=== PATIENT | male | born 1950 | race Caucasian/White ===

== ENCOUNTER 2019-03-01 11:44 | Inpatient (IN) ==
--- NOTE | 2019-03-01 13:31 | Internal Med History&Physical ---
Date of Encounter: 03/01/19 Time of Encounter: 13:26 Assessment and Plan (1) CAD (coronary artery disease) Current visit: Yes Status: Acute Patient appears relaxed and denies any chest discomforts or palpitations. Patient was evaluated at [facility] and was ruled out for cardiac ischemia per cardiac enzymes and with a stress test. Physical therapy evaluation pending. We will mobilize patient and continue to monitor closely. Qualifiers: Coronary Disease-Associated Artery/Lesion type: [place] artery [place] vs. transplanted heart: [place] heart Associated angina: without angina Qualified Code(s): I25.10 - Atherosclerotic heart disease of [place] coronary artery without angina pectoris (2) CVA (cerebral vascular accident) Current visit: Yes Status: Acute No acute issues. On patient's neurological exam no focal deficits residuals noted from patient's remote CVA. Physical therapy evaluation pending. We will continue with current plan of care and medications. Qualifiers: CVA mechanism: occlusion Precerebral and cerebral artery: unspecified cerebral artery Qualified Code(s): I63.50 - Cerebral infarction due to unspecified occlusion or stenosis of unspecified cerebral artery (3) Back pain Current visit: Yes Status: Acute Patient with complaints of moderate low back pain. Patient with long history of lumbar disc disease and has had 2 lumbar surgeries. Patient was evaluated by orthospine through imagery was determined to be nonsurgical and will be treated conservatively with physical therapy. Currently patient's pain is mild and tolerable. Will start patient on Tylenol when necessary and evaluate his response. We will mobilize patient Qualifiers: Back pain location: low back pain Chronicity: acute Back pain laterality: midline Sciatica presence: without sciatica Qualified Code(s): M54.5 - Low back pain (4) Generalized anxiety disorder Current visit: Yes Status: Acute Patient with recent history of anxiety due to separation from his , who he is taking care of. Patient's recently diagnosed with cancer and requires a lot of care. Patient was on Ativan at previous facility and responded well. We will restart patient's when necessary Ativan. Currently patient appears relaxant is interacting well with staff. Internal Medicine - H&P: HPI Chief complaint: chest pain Admitted From: Hospital to Hospital Transfer Plans for Post Hospital Care: Home History of present illness: Mr. Alvarez is a 69 year old male, who was transferred here from an [facility] where he was evaluated for chest pain and dyspnea. Patient was ruled out per cardiac enzymes and cardiac stress test. Patient has stated that he has had an elevation of stress at home as he takes care of his who was recently diagnosed with cancer. While at [facility] patient also complained of moderate low back pain and was evaluated with a MRI and per orthospine was nonsurgical. Patient with a history of lumbar disc disease. Patient was transferred his facility for further rehabilitation due to his generalized weakness and low back pain. Patient currently complains of slight low back pain which he denies any radicular symptoms. Patient denies any shortness of breath or chest discomforts. Past Med Surg Social Fam HX - Past Medical History Medical history: arthritis, COPD, coronary artery disease, CVA, GERD, hypertension, kidney stones, TIA Additional medical history: DIZZINESS,CHRONIC LUMBAR PAIN, ULCERS, DJD Psychiatric history: no psych history - Past Surgical History Surgical History: appendectomy, carotid endarterectomy Additional surgical history: lumbar - Social History Smoking Status: Former smoker Smokeless Tobacco Status: No Alcohol use: none Drug use: none - Family History Father Adopted: No Family Member Ethnicity: Non- Living Status: Hx Family Cardiac Disorders: No Hx Family Respiratory Disorders: No Hx Family Cancer: No Hx Family GI Disorders: No Hx Family Endocrine Disorder: No Hx Family Neuromuscular Disorders: No Hx Family Neurologic Disorders: No Hx Family HEENT Disorders: No Hx Family Autoimmune Disorders: No Internal Medicine - H&P: Meds Tamsulosin [Flomax] 0.4 mg PO DAILY 09/08/17 [History] Docusate Sodium [Stool Softener] 300 mg PO DAILY 02/24/19 [History] Esomeprazole Magnesium [Nexium] 40 mg PO DAILY 02/24/19 [History] Multivitamin [One Daily Essential] 1 tab PO DAILY 02/24/19 [History] Simvastatin [Zocor] 40 mg PO QPM 02/24/19 [History] Aspirin Enteric Coated [Aspirin EC] 81 mg PO DAILY #30 tablet. 02/28/19 [Rx] Clopidogrel [Plavix] 75 mg PO DAILY #30 tablet 02/28/19 [Rx] Gabapentin [Neurontin] 300 mg PO TID #90 capsule 02/28/19 [Rx] HydrOXYzine 10 mg PO BID #60 tablet 02/28/19 [Rx] Trolamine Salicylate/Aloe Vera [Aspercreme 10%] 1 appl TP TID PRN tube 02/28/19 [Rx] Allergy/AdvReac Type Severity Reaction Status Date / Time No Known Allergies Allergy Verified 02/24/19 16:08 All Systems PM: A 10-system review of systems was performed and is negative for pertinent findings except as documented above in the HPI. - Constitutional Constitutional: no chills, no fever(s), no night sweats - EENT Eyes: as per HPI, no change in vision, no discharge, no pain, no photophobia Ears: no ear discharge, no ear pain, no tinnitus Nose, mouth and throat: as per HPI, no dysphagia, no nasal discharge, no neck pain, no sore throat - Breasts Breasts: as per HPI - Cardiovascular Cardiovascular ROS IM: as per HPI, no chest pain, no diaphoresis, no dyspnea, no lightheadedness, no palpitations, no syncope - Respiratory Respiratory: as per HPI, no cough, no dyspnea, no wheezing, no excessive phlegm production - Gastrointestinal Gastrointestinal: as per HPI, no abdominal pain, no diarrhea, no hematemesis, no hematochezia, no melena, no nausea, no vomiting - Musculoskeletal Musculoskeletal ROS IM: as per HPI, back pain, no numbness, no tingling - Integumentary Integumentary IM: as per HPI, no rash, no unusual bruising - Neurological Neurological ROS: as per HPI, no confusion, no convulsions, no focal weakness, no numbness, no tingling, no tremor(s) - Hematologic/Lymphatic Hematologic/Lymphatic: no easy bruising - Constitutional Vitals: Temp Pulse Resp BP Pulse Ox 97.7 F 105 18 112/68 97 03/01/19 11:37 03/01/19 11:37 03/01/19 11:37 03/01/19 11:37 03/01/19 11:53 General appearance: Present: A&O X 3, pleasant - Head Head exam: Present: atraumatic, normocephalic - Eye Eye exam: Present: PERRL, conjuntiva pink, sclera anicteric Pupils: Present: PERRL - Neck Neck exam general surgery: Present: supple, trachea midline. Absent: lymphadenopathy - Respiratory Respiratory exam: Present: CTAB. Absent: accessory muscle use, rales, rhonchi, wheezes - Cardiovascular Cardiovascular exam: Present: RRR, +S1, +S2. Absent: diastolic murmur, gallop, rubs, systolic murmur - GI/Abdominal GI/Abdominal exam: Present: normal bowel sounds, soft, no peritoneal signs. Absent: distended, tenderness - Extremities Exam Extremities exam: Present: warm, radial pulses palpable and symmetrical. Absent: calf tenderness, cyanotic, pedal edema - Neurological Exam Neurological exam: Present: CN II-XII intact, oriented X3, no focal deficits. Absent: pronater drift, facial droop, speech deficit - Skin Skin exam: Present: dry, intact
[2019-03-01] MEDS ORDERED: MOM Conc 10 ML UD.LIQ PO PRN (14:03)
[2019-03-01] MEDS ORDERED: Trolamine Salicylate/Aloe Vera 35.4 GM TUBE TP PRN (14:03)
[2019-03-01] MEDS: Gabapentin 300 MG CAPSULE PO SCH ×2 (15:13→20:19)
[2019-03-01] MEDS: Sennosides 8.6 MG TABLET PO SCH (20:19)
[2019-03-01] MEDS: Acetaminophen 325 MG TABLET PO PRN (20:24)
[2019-03-01] MEDS: *HR* LORazepam 0.5 MG TABLET PO PRN (21:56)
[2019-03-02] MEDS: Acetaminophen 325 MG TABLET PO PRN ×3 (02:19→21:24)
[2019-03-02 06:54] LABS: Basophils % 0.5 %; Eosinophils # 0.1 K/mcL (0.0-0.6); Eosinophils % 3.6 %; Hematocrit 38.6 % (37.5-50.1); Hemoglobin 13.3 g/dL (12.9-16.9); Immature Granulocytes % 0.3 % (0-4); Lymphocytes % 24.5 %; Mean Corpuscular HGB Conc 34.5 g/dL (31.6-35.5); Mean Corpuscular Hemoglobin 31.1 pg (28.0-33.3); Mean Corpuscular Volume 90.4 fL (83.0-100.0); Mean Platelet Volume 11.6 fL (9.4-12.4); Monocytes # 0.5 K/mcL (0.0-1.3); Monocytes % 11.9 %; Neutrophils # 2.3 K/mcL (1.6-8.9); Platelet Count 135 K/mcL (140-400); Red Blood Count 4.27 M/mcL (4.19-5.50); Red Cell Distribution Width 14.2 % (11.5-14.5); Segmented Neutrophils % 59.2 %
[2019-03-02 06:59] LABS: INR 1.1; Prothrombin Time 12.1 Seconds (9.4-12.1)
[2019-03-02 07:02] LABS: Activated Partial Thrombo Time 35.3 Seconds (26.0-36.0)
[2019-03-02 07:15] LABS: BUN/Creatinine Ratio 13 (6-26); Blood Urea Nitrogen 15 mg/dL (8-23); Calcium 9.1 mg/dL (8.6-10.3); Carbon Dioxide 27 mEq/L (23-29); Chloride 102 mEq/L (98-107); Glucose 83 mg/dL (70-105); Osmolality,Calculated 282 (280-300); Potassium 4.2 mEq/L (3.5-5.1); Sodium 136 mEq/L (136-145); eGFR For Non-African Americans > 60 (> 60)
[2019-03-02] MEDS: Multivit/Ca/Min/Fe/FA 1 TAB TABLET PO SCH (08:08)
[2019-03-02] MEDS: Aspirin Enteric Coated 81 MG Tablet PO SCH (08:08)
[2019-03-02] MEDS: Sennosides 8.6 MG TABLET PO SCH ×2 (08:08→21:23)
[2019-03-02] MEDS: Gabapentin 300 MG CAPSULE PO SCH ×3 (08:08→21:24)
[2019-03-02] MEDS: *HR* LORazepam 0.5 MG TABLET PO PRN ×2 (08:12→21:24)
--- NOTE | 2019-03-02 14:58 | Internal Med Progress Note ---
Date of Encounter: 03/02/19 Time of Encounter: 14:56 - Assessment and plan (1) Back pain Current Visit: Yes Status: Acute Assessment and plan: Continue PT and OT. Will follow progress. Continue gabapentin and Tylenol for pain control. Has history of lumbar disc disease with multiple surgeries. Qualifiers: Back pain location: low back pain Chronicity: acute Back pain laterality: midline Sciatica presence: without sciatica Qualified Code(s): M54.5 - Low back pain (2) CAD (coronary artery disease) Current Visit: Yes Status: Acute Assessment and plan: Denies chest pain. Continue Plavix. Qualifiers: Coronary Disease-Associated Artery/Lesion type: [place] artery [place] vs. transplanted heart: [place] heart Associated angina: without angina Qualified Code(s): I25.10 - Atherosclerotic heart disease of [place] coronary artery without angina pectoris (3) CVA (cerebral vascular accident) Current Visit: Yes Status: Acute Assessment and plan: No new neurological deficits. CVA was in the past. Only residual deficit is right 4th to 5th finger weakness. Qualifiers: CVA mechanism: occlusion Precerebral and cerebral artery: unspecified cerebral artery Qualified Code(s): I63.50 - Cerebral infarction due to unspecified occlusion or stenosis of unspecified cerebral artery (4) Generalized anxiety disorder Current Visit: Yes Status: Acute Assessment and plan: Continue Ativan. Patient very tearful and anxious discussing who he is the caregiver of that has stage IV cancer. - Time Spent With Patient less than 15 minutes - Subjective Interval history: Patient participating in therapy. Continues to complain of low back pain. St ates that radiates to both legs. He is on gabapentin. States this is controlling most of the pain at this time. 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 Patient is very tearful talking about it. States he needs to get home and he can do any kind of home therapy or exercises that as instructed. - Constitutional Vitals: Temp Pulse Resp BP Pulse Ox 97.8 F 68 16 126/79 95 03/02/19 07:40 03/02/19 07:40 03/02/19 07:40 03/02/19 07:40 03/02/19 07:40 General appearance: Present: cooperative, A&O X 3, pleasant, no acute distress, answers questions appropriately - Head Head exam: Present: atraumatic, normocephalic - Eye Eye exam: Present: PERRL, conjuntiva pink, sclera anicteric Pupils: Present: PERRL - Neck Neck exam general surgery: Present: supple, trachea midline. Absent: lymphadenopathy - Respiratory Respiratory exam: Present: CTAB. Absent: accessory muscle use, rales, rhonchi, wheezes - Cardiovascular Cardiovascular exam: Present: RRR, +S1, +S2. Absent: diastolic murmur, gallop, rubs, systolic murmur - GI/Abdominal GI/Abdominal exam: Present: normal bowel sounds, soft, no peritoneal signs. Absent: distended, tenderness - Extremities Exam Extremities exam: Present: warm, radial pulses palpable and symmetrical. Absent: calf tenderness, cyanotic, pedal edema - Neurological Exam Neurological exam: Present: CN II-XII intact, oriented X3, no focal deficits. Absent: pronater drift, facial droop, speech deficit - Skin Skin exam: Present: dry, intact Internal Medicine: Result - Labs CBC & Chem 7: 03/02/19 06:40 03/02/19 06:40 Labs: Short CBC 03/02/19 Range/Units 06:40 WBC 3.9 L (4.3-11.1) K/mcL Hgb 13.3 (12.9-16.9) g/dL Hct 38.6 (37.5-50.1) % Plt Count 135 L (140-400) K/mcL Neutrophils # 2.3 (1.6-8.9) K/mcL BMP 03/02/19 06:40 Sodium 136 Potassium 4.2 Chloride 102 Carbon Dioxide 27 BUN 15 Creatinine 1.20 Glucose 83 Calcium 9.1 - ABG Interpretation ABG results: PT/INR, D-dimer PT 12.1 Seconds (9.4-12.1) 03/02/19 06:40 Consult Discharge Plan - Plan Referrals: Frank Snow Jr, MD [Primary Care Provider] -
[2019-03-03] MEDS: Acetaminophen 325 MG TABLET PO PRN ×3 (06:27→22:29)
[2019-03-03] MEDS: *HR* LORazepam 0.5 MG TABLET PO PRN ×2 (06:28→22:29)
[2019-03-03] MEDS: Aspirin Enteric Coated 81 MG Tablet PO SCH (08:32)
[2019-03-03] MEDS: Multivit/Ca/Min/Fe/FA 1 TAB TABLET PO SCH (08:33)
[2019-03-03] MEDS: Gabapentin 300 MG CAPSULE PO SCH ×3 (08:33→22:29)
[2019-03-03] MEDS: Sennosides 8.6 MG TABLET PO SCH ×2 (08:34→22:29)
--- NOTE | 2019-03-03 10:05 | Internal Med Progress Note ---
Date of Encounter: 03/03/19 Time of Encounter: 10:03 - Assessment and plan (1) Back pain Current Visit: Yes Status: Acute Assessment and plan: Patient is stronger per therapy but still has unsteadiness and weakness issues. K pad has helped. However, he is not sleeping because of back and hip and knee pain. We will add ties tizanidine as needed. Qualifiers: Back pain location: low back pain Chronicity: acute Back pain laterality: midline Sciatica presence: without sciatica Qualified Code(s): M54.5 - Low back pain (2) CAD (coronary artery disease) Current Visit: Yes Status: Acute Assessment and plan: Clinically stable without signs or symptoms. Qualifiers: Coronary Disease-Associated Artery/Lesion type: [place] artery [place] vs. transplanted heart: [place] heart Associated angina: without angina Qualified Code(s): I25.10 - Atherosclerotic heart disease of [place] coronary artery without angina pectoris (3) CVA (cerebral vascular accident) Current Visit: Yes Status: Acute Assessment and plan: Removal with minimal residua. Qualifiers: CVA mechanism: occlusion Precerebral and cerebral artery: unspecified cerebral artery Qualified Code(s): I63.50 - Cerebral infarction due to unspecified occlusion or stenosis of unspecified cerebral artery (4) Left hip pain Current Visit: Yes Status: Acute Assessment and plan: This may be referred from his back but we will evaluate with hip x-ray. - Subjective Interval history: Patient has pain in his left hip which is worse and reminds him of the time it dislocated. He also has pain and cramping in his left knee. With discussed orthopedic follow-up at some point in the future. I told him we would obtain an x-ray of his hip to verify that it was not an acute problem. Bowels moved yesterday for the first time since admission. He denies other new problems. Per therapy and nursing he is very concerned about going home to care for his . Discussed care with other providers and/or nursing. Patient has no complaint of chest discomfort, dyspnea, orthopnea, palpitations, nausea or vomiting, constipation or diarrhea, other changes in bowel habits, difficulty with urination, rash or itching, or other new complaints, except as mentioned above. Review of systems is otherwise negative. - Constitutional Vitals: Temp Pulse Resp BP Pulse Ox 97.7 F 79 18 119/76 96 03/03/19 07:00 03/03/19 07:00 03/03/19 07:00 03/03/19 07:00 03/03/19 07:00 Exam: Examination: (Except as mentioned above): General: In no apparent distress. Alert and oriented 3. Nondiaphoretic. Head: Atraumatic and normocephalic. Respiratory: No use of accessory muscles. Lungs are clear throughout. Normal airflow. Cardiovascular: Regular rate and rhythm without murmur appreciated. Abdomen: Bowel sounds are normal. No hepatosplenomegaly mass or tenderness appreciated. Obese and therefore difficult to palpate deeply. Patient is examined upright in chair and this also limits exam. Extremities: No cyanosis clubbing or edema. No cord or calf tenderness. Skin: Warm and non-diaphoretic with no new lesions noted. Internal Medicine: Result - Labs CBC & Chem 7: 03/02/19 06:40 03/02/19 06:40 - ABG Interpretation ABG results: PT/INR, D-dimer PT 12.1 Seconds (9.4-12.1) 03/02/19 06:40 Consult Discharge Plan - Plan Referrals: Frank Snow Jr, MD [Primary Care Provider] -
[2019-03-03] MEDS: tiZANidine 4 MG TABLET PO PRN (17:45)
[2019-03-04] MEDS: *HR* LORazepam 0.5 MG TABLET PO PRN (09:09)
[2019-03-04] MEDS: Gabapentin 300 MG CAPSULE PO SCH ×3 (09:09→19:52)
[2019-03-04] MEDS: Multivit/Ca/Min/Fe/FA 1 TAB TABLET PO SCH (09:09)
[2019-03-04] MEDS: Sennosides 8.6 MG TABLET PO SCH ×2 (09:09→19:52)
[2019-03-04] MEDS: Aspirin Enteric Coated 81 MG Tablet PO SCH (09:10)
--- NOTE | 2019-03-04 09:43 | Internal Med Progress Note ---
Date of Encounter: 03/04/19 Time of Encounter: 08:30 - Assessment and plan (1) Back pain Current Visit: Yes Status: Acute Assessment and plan: I suspect this is sacroiliitis or lumbar spine problem as previously noted. Qualifiers: Back pain location: low back pain Chronicity: acute Back pain laterality: midline Sciatica presence: without sciatica Qualified Code(s): M54.5 - Low back pain (2) CAD (coronary artery disease) Current Visit: Yes Status: Acute Assessment and plan: No current signs or symptoms. Qualifiers: Coronary Disease-Associated Artery/Lesion type: [place] artery [place] vs. transplanted heart: [place] heart Associated angina: without angina Qualified Code(s): I25.10 - Atherosclerotic heart disease of [place] coronary artery without angina pectoris (3) CVA (cerebral vascular accident) Current Visit: Yes Status: Acute Assessment and plan: Stable and remote.. Qualifiers: CVA mechanism: occlusion Precerebral and cerebral artery: unspecified cerebral artery Qualified Code(s): I63.50 - Cerebral infarction due to unspecified occlusion or stenosis of unspecified cerebral artery (4) Left hip pain Current Visit: Yes Status: Acute Assessment and plan: Apparently referred from his lumbar sacral disease. (5) Reactive depression (situational) Current Visit: Yes Status: Acute Assessment and plan: We will begin Lexapro as noted. Psychiatry consult has also been requested. - Subjective Interval history: We discussed his concern about recent family losses and his 's brain cancer. He is admitting to emotional changes and we described to him reactive depression. For this reason, he will begin Lexapro at a low dose and follow with expected changes in a week or 2. Discussed care with other providers and/or nursing. Patient has no complaint of chest discomfort, dyspnea, orthopnea, palpitations, nausea or vomiting, constipation or diarrhea, other changes in bowel habits, difficulty with urination, rash or itching, or other new complaints, except as mentioned above. Review of systems is otherwise negative. - Constitutional Vitals: Temp Pulse Resp BP Pulse Ox 97.4 F L 76 16 93/65 96 03/04/19 07:52 03/04/19 07:52 03/04/19 07:52 03/04/19 07:52 03/04/19 07:52 Exam: Examination: (Except as mentioned above): General: In no apparent distress. Alert and oriented 3. Nondiaphoretic. Head: Atraumatic and normocephalic. Respiratory: No use of accessory muscles. Lungs are clear throughout. Normal airflow. Cardiovascular: Regular rate and rhythm without murmur appreciated. Abdomen: Bowel sounds are normal. No hepatosplenomegaly mass or tenderness appreciated. Obese and therefore difficult to palpate deeply. Extremities: No cyanosis clubbing or edema. Skin: Warm and non-diaphoretic with no new lesions noted. Internal Medicine: Result - Labs CBC & Chem 7: 03/02/19 06:40 03/02/19 06:40 - ABG Interpretation ABG results: PT/INR, D-dimer PT 12.1 Seconds (9.4-12.1) 03/02/19 06:40 - Impressions Impressions Hip X-Ray 03/03/19 10:10 IMPRESSION: 1. No acute findings in the left hip. 2. Moderate to severe degenerative changes of the left sacroiliac joint with possible sacroiliitis. Consider further evaluation with a dedicated sacroiliac joint radiograph versus MRI or CT. 3. Minimal degenerative changes of the right sacroiliac joint and bilateral hips. 4. New postoperative changes in the lumbosacral spine with no evident complication. D/ / Nam Delgado MD / Nam Delgado MD Interpreting Provider: Nam Delgado MD Consult Discharge Plan - Plan Referrals: Frank Snow Jr, MD [Primary Care Provider] -
[2019-03-04] MEDS: tiZANidine 4 MG TABLET PO PRN (15:46)
[2019-03-04] MEDS ORDERED: Ondansetron ODT 4 MG TAB.RAPDIS SL PRN (18:28)
[2019-03-04] MEDS ORDERED: Melatonin 3 MG TABLET PO PRN (19:33)
[2019-03-04] MEDS: Acetaminophen 325 MG TABLET PO PRN (20:48)
[2019-03-05] MEDS: *HR* LORazepam 0.5 MG TABLET PO PRN (00:19)
[2019-03-05] MEDS: Acetaminophen 325 MG TABLET PO PRN (01:51)
[2019-03-05] MEDS: Sennosides 8.6 MG TABLET PO SCH ×2 (09:00→19:45)
[2019-03-05] MEDS: Gabapentin 300 MG CAPSULE PO SCH ×3 (09:00→19:45)
[2019-03-05] MEDS: Multivit/Ca/Min/Fe/FA 1 TAB TABLET PO SCH (09:00)
[2019-03-05] MEDS: tiZANidine 4 MG TABLET PO PRN (09:00)
[2019-03-05] MEDS: Aspirin Enteric Coated 81 MG Tablet PO SCH (09:00)
--- NOTE | 2019-03-05 13:40 | Internal Med Progress Note ---
Date of Encounter: 03/05/19 Time of Encounter: 13:40 - Assessment and plan (1) Back pain Current Visit: Yes Status: Acute Assessment and plan: Clinically stable At this time. Qualifiers: Back pain location: low back pain Chronicity: acute Back pain laterality: midline Sciatica presence: without sciatica Qualified Code(s): M54.5 - Low back pain (2) CAD (coronary artery disease) Current Visit: Yes Status: Acute Assessment and plan: No current signs or symptoms. Qualifiers: Coronary Disease-Associated Artery/Lesion type: [place] artery [place] vs. t ransplanted heart: [place] heart Associated angina: without angina Qualified Code(s): I25.10 - Atherosclerotic heart disease of [place] coronary artery without angina pectoris (3) CVA (cerebral vascular accident) Current Visit: Yes Status: Acute Assessment and plan: Again, this is remote and stable. Qualifiers: CVA mechanism: occlusion Precerebral and cerebral artery: unspecified cerebral artery Qualified Code(s): I63.50 - Cerebral infarction due to u nspecified occlusion or stenosis of unspecified cerebral artery (4) Left hip pain Current Visit: Yes Status: Acute Assessment and plan: Patient denies symptoms today when he is not in therapy. (5) Reactive depression (situational) Current Visit: Yes Status: Acute Assessment and plan: Only day 2 of Lexapro. - Subjective Interval history: The patient slept somewhat better last night but would like to sleep better. I encouraged melatonin for another couple of nights and then we will reassess. He agreed. He denies other problems and is resting comfortably upon my arrival. He denies hip or back pain at this time. Discussed care with other providers and/or nursing. Patient has no complaint of chest discomfort, dyspnea, orthopnea, palpitations, nausea or vomiting, constipation or diarrhea, other changes in bowel habits, difficulty with urination, rash or itching, or other new complaints, except as mentioned above. Review of systems is otherwise negative. - Constitutional Vitals: Temp Pulse Resp BP Pulse Ox 98.9 F 66 16 121/70 96 03/05/19 07:23 03/05/19 07:23 03/05/19 07:23 03/05/19 07:23 03/05/19 07:23 Exam: Examination: (Except as mentioned above): General: In no apparent distress. Alert and oriented 3. Nondiaphoretic. Head: Atraumatic and normocephalic. Respiratory: No use of accessory muscles. Lungs are clear throughout. Normal airflow. Cardiovascular: Regular rate and rhythm without murmur appreciated. Abdomen: Bowel sounds are normal. No hepatosplenomegaly mass or tenderness appreciated. Obese and therefore difficult to palpate deeply. Extremities: No cyanosis clubbing or edema. Skin: Warm and non-diaphoretic with no new lesions noted. Internal Medicine: Result - Labs CBC & Chem 7: 03/02/19 06:40 03/02/19 06:40 - ABG Interpretation ABG results: PT/INR, D-dimer PT 12.1 Seconds (9.4-12.1) 03/02/19 06:40 Consult Discharge Plan - Plan Referrals: Frank Snow Jr, MD [Primary Care Provider] -
[2019-03-06] MEDS: Acetaminophen 325 MG TABLET PO PRN (03:29)
[2019-03-06 06:33] LABS: Eosinophils # 0.1 K/mcL (0.0-0.6); Eosinophils % 2.7 %; Hematocrit 36.9 % (37.5-50.1); Immature Granulocytes % 0.5 % (0-4); Lymphocytes # 0.9 K/mcL (0.6-4.6); Lymphocytes % 22.2 %; Mean Corpuscular HGB Conc 35.2 g/dL (31.6-35.5); Mean Corpuscular Hemoglobin 31.6 pg (28.0-33.3); Mean Corpuscular Volume 89.6 fL (83.0-100.0); Monocytes # 0.5 K/mcL (0.0-1.3); Monocytes % 11.1 %; Neutrophils # 2.6 K/mcL (1.6-8.9); Platelet Count 140 K/mcL (140-400); Red Blood Count 4.12 M/mcL (4.19-5.50); Red Cell Distribution Width 14.1 % (11.5-14.5); Segmented Neutrophils % 62.5 %
[2019-03-06 06:42] LABS: BUN/Creatinine Ratio 15 (6-26); Blood Urea Nitrogen 18 mg/dL (8-23); Calcium 9.1 mg/dL (8.6-10.3); Carbon Dioxide 28 mEq/L (23-29); Chloride 100 mEq/L (98-107); Glucose 90 mg/dL (70-105); Osmolality,Calculated 283 (280-300); Sodium 136 mEq/L (136-145); eGFR For Non-African Americans 59 (> 60)
[2019-03-06 08:03] VITALS: BP 120/73
[2019-03-06] MEDS: Gabapentin 300 MG CAPSULE PO SCH (08:55)
[2019-03-06] MEDS: Multivit/Ca/Min/Fe/FA 1 TAB TABLET PO SCH (08:55)
[2019-03-06] MEDS: Sennosides 8.6 MG TABLET PO SCH (08:55)
[2019-03-06] MEDS: Aspirin Enteric Coated 81 MG Tablet PO SCH (08:55)
--- NOTE | 2019-03-06 11:19 | Discharge Summary ---
Orders not resulted at time of discharge: Pending orders 03/13/19 04:00 Basic Metabolic Panel MO Complete Blood Count [HEME] MO 03/20/19 04:00 Basic Metabolic Panel MO Complete Blood Count [HEME] MO Date of Encounter: 03/06/19 Time of Encounter: 11:20 - Discharge Diagnosis (1) Back pain Priority: Primary Status: Acute Comments: Continue current medication. Follow up with ortho, neurology as scheduled. Continue tizanidine 4mg every 6hrs prn as needed. Follow up with PCP in 1 to 2 weeks. Continue home health PT and OT. Educated walker safety and to maintain not lifting anything greater than 10 pounds. Qualifiers: Back pain location: low back pain Chronicity: acute Back pain laterality: midline Sciatica presence: without sciatica Qualified Code(s): M54.5 - Low back pain (2) CAD (coronary artery disease) Priority: Secondary Status: Chronic Comments: Denies chest pain. Continue current medication. Qualifiers: Coronary Disease-Associated Artery/Lesion type: [place] artery [place] vs. transplanted heart: [place] heart Associated angina: without angina Qualified Code(s): I25.10 - Atherosclerotic heart disease of [place] coronary artery without angina pectoris (3) CVA (cerebral vascular accident) Priority: Secondary Status: Chronic Comments: Old CVA. No new neurological deficits at this time. Qualifiers: CVA mechanism: occlusion Precerebral and cerebral artery: unspecified cerebral artery Qualified Code(s): I63.50 - Cerebral infarction due to unsp ecified occlusion or stenosis of unspecified cerebral artery (4) Generalized anxiety disorder Priority: Secondary Status: Acute Comments: Anxiety due to caring for with stage IV cancer. Will consult home health social service director. Continue Lexapro 10 mg. Follow up with PCP in 1 to 2 weeks. Hospital course: Mr. Alvarez is a 69 year old male discharging to home after being admitted with back pain. Patient has had several back surgeries in the past. Continues to have weakness and bilateral lower extremities. Ambulating safely with Walker. Educated safety. Will continue home health PT and OT. Patient is director credit risk for was stage IV cancer. Will consult social service director for home health. Was started on Lexapro for anxiety. Follow up with PCP within one to 2 weeks. Follow up with specialist as scheduled. Discharge discussed with: patient, nurse, social work - Time Spent with Patient Total time spent providing and/or coordinating discharge services: Time spent: Less than 30 minutes - Discharge Medications Prescriptions: New Escitalopram [Lexapro] 10 mg PO DAILY #14 tablet Melatonin 6 mg PO HS PRN tablet PRN Reason: Insomnia Continued Tamsulosin [Flomax] 0.4 mg PO HS Esomeprazole Magnesium [Nexium] 40 mg PO DAILY Simvastatin [Zocor] 40 mg PO QPM Docusate Sodium [Stool Softener] 200 mg PO DAILY Multivitamin [One Daily Essential] 1 tab PO DAILY Aspirin Enteric Coated [Aspirin EC] 81 mg PO DAILY #30 tablet. Gabapentin [Neurontin] 300 mg PO TID #90 capsule Clopidogrel [Plavix] 75 mg PO DAILY #30 tablet Trolamine Salicylate/Aloe Vera [Aspercreme 10%] 1 appl TP TID PRN tube PRN Reason: See Comments Sennosides [Senna] 8.6 mg PO BID LORazepam [Ativan] 0.5 mg PO Q8HR PRN PRN Reason: Anxiety Acetaminophen [Tylenol] 650 mg PO Q4HR PRN PRN Reason: Pain MOM Conc [MILK OF MAGNESIA conc] 10 ml PO BID PRN PRN Reason: Constipation Home Medications: Tamsulosin [Flomax] 0.4 mg PO HS 09/08/17 [History] Docusate Sodium [Stool Softener] 200 mg PO DAILY 02/24/19 [History] Esomeprazole Magnesium [Nexium] 40 mg PO DAILY 02/24/19 [History] Multivitamin [One Daily Essential] 1 tab PO DAILY 02/24/19 [History] Simvastatin [Zocor] 40 mg PO QPM 02/24/19 [History] Aspirin Enteric Coated [Aspirin EC] 81 mg PO DAILY #30 tablet. 02/28/19 [Rx] Clopidogrel [Plavix] 75 mg PO DAILY #30 tablet 02/28/19 [Rx] Gabapentin [Neurontin] 300 mg PO TID #90 capsule 02/28/19 [Rx] Trolamine Salicylate/Aloe Vera [Aspercreme 10%] 1 appl TP TID PRN tube 02/28/19 [Rx] Acetaminophen [Tylenol] 650 mg PO Q4HR PRN 03/01/19 [History] LORazepam [Ativan] 0.5 mg PO Q8HR PRN 03/01/19 [History] MOM Conc [MILK OF MAGNESIA conc] 10 ml PO BID PRN 03/01/19 [History] Sennosides [Senna] 8.6 mg PO BID 03/01/19 [History] Escitalopram [Lexapro] 10 mg PO DAILY #14 tablet 03/06/19 [Rx] Melatonin 6 mg PO HS PRN tablet 03/06/19 [Rx] Allergies/Adverse Reactions: Allergy/AdvReac Type Severity Reaction Status Date / Time No Known Allergies Allergy Verified 02/24/19 16:08 Date of admission: 03/01/19 11:44 Primary care physician: Frank Snow Jr, MD Consults: 03/01/19 13:54 Consult to Occupational Therapy [CONS] Routine Comment: Evaluate, develop and implement POC Reason for Consult: Deconditioning s/p chest pain, dizziness, SOB. Does patient have active BEDREST order?: No Is patient medically & hemodynamically stable?: Yes Consult to Physical Therapy [CONS] Routine Comment: Evaluate, develop and implement POC Reason for Consult: Deconditioning s/p chest pain, dizziness, SOB. Does patient have active BEDREST order?: No Is patient medically & hemodynamically stable?: Yes Consult to Recreational Therapy [CONS] Routine Comment: Evaluate, develop and implement POC Consult to Extension Service Specialist [CONS] Routine Reason for SW Consult: Deconditioning s/p chest pain, dizziness, SOB. 03/04/19 09:36 Consult to Psychology [CONS] Routine Consulting Provider: Oneyda Darby Reason for Consult: Depression; stage IV cancer/terminally ill Call Completed: No Discharging clinician: Trent Jerry Anticipated date of discharge: 03/06/19 - Constitutional Vitals: Temp Pulse Resp BP Pulse Ox 98.2 F 68 16 120/73 97 03/06/19 08:02 03/06/19 08:02 03/06/19 08:02 03/06/19 08:02 03/06/19 08:02 General appearance: Present: cooperative, A&O X 3, pleasant, no acute distress, answers questions appropriately - Head Head exam: Present: atraumatic, normocephalic - Eye Eye exam: Present: PERRL, conjuntiva pink, sclera anicteric Pupils: Present: PERRL - Neck Neck exam general surgery: Present: supple, trachea midline. Absent: lymphadenopathy - Respiratory Respiratory exam: Present: CTAB. Absent: accessory muscle use, rales, rhonchi, wheezes - Cardiovascular Cardiovascular exam: Present: RRR, +S1, +S2. Absent: diastolic murmur, gallop, rubs, systolic murmur - GI/Abdominal GI/Abdominal exam: Present: normal bowel sounds, soft, no peritoneal signs. Absent: distended, tenderness - Extremities Exam Extremities exam: Present: warm, radial pulses palpable and symmetrical. Absent: calf tenderness, cyanotic, pedal edema - Neurological Exam Neurological exam: Present: CN II-XII intact, oriented X3, no focal deficits. Absent: pronater drift, facial droop, speech deficit - Skin Skin exam: Present: dry, intact - Patient Status Disposition: Home, Self-Care Condition: Good Functional capacity at discharge: uses cane/walker Overall status at discharge: patient is progressing back to baseline - Discharge Instructions Follow Up With: Frank Snow Jr, MD [Primary Care Provider] - - Diet and Activity Activity: as per physical therapy, increase activity as tolerated Diet: advance to your usual diet
--- NOTE | 2019-03-06 11:27 | Physician Discharge Referral ---
Home Health/Hosp Referral Info Transfer to: Home Health Provider in Charge Post Discharge: PCP - Diagnosis (1) Back pain Priority: Primary Status: Acute (2) CAD (coronary artery disease) Priority: Secondary Status: Chronic (3) CVA (cerebral vascular accident) Priority: Secondary Status: Chronic (4) Generalized anxiety disorder Priority: Primary Status: Acute - Respiratory Orders Smoking Cessation: Smoking cessation has been advised. For more information, call the [place] Tobacco Quit Line at 2-061-LBCP-NOW. - Diet/Nutrition Diet/Nutrition Orders: Regular - Activity Activity Orders: Ambulate, Walker - Services Needed Following services are medically necessary services: Physical Therapy, Occupational Therapy, Med Social Work - Transfer Medications Prescriptions: Escitalopram [Lexapro] 10 mg PO DAILY #14 tablet Home Medications: Tamsulosin [Flomax] 0.4 mg PO HS 09/08/17 [History] Docusate Sodium [Stool Softener] 200 mg PO DAILY 02/24/19 [History] Esomeprazole Magnesium [Nexium] 40 mg PO DAILY 02/24/19 [History] Multivitamin [One Daily Essential] 1 tab PO DAILY 02/24/19 [History] Simvastatin [Zocor] 40 mg PO QPM 02/24/19 [History] Aspirin Enteric Coated [Aspirin EC] 81 mg PO DAILY #30 tablet. 02/28/19 [Rx] Clopidogrel [Plavix] 75 mg PO DAILY #30 tablet 02/28/19 [Rx] Gabapentin [Neurontin] 300 mg PO TID #90 capsule 02/28/19 [Rx] Trolamine Salicylate/Aloe Vera [Aspercreme 10%] 1 appl TP TID PRN tube 02/28/19 [Rx] Acetaminophen [Tylenol] 650 mg PO Q4HR PRN 03/01/19 [History] LORazepam [Ativan] 0.5 mg PO Q8HR PRN 03/01/19 [History] MOM Conc [MILK OF MAGNESIA conc] 10 ml PO BID PRN 03/01/19 [History] Sennosides [Senna] 8.6 mg PO BID 03/01/19 [History] Escitalopram [Lexapro] 10 mg PO DAILY #14 tablet 03/06/19 [Rx] Melatonin 6 mg PO HS PRN tablet 03/06/19 [Rx] Allergies/Adverse Reactions: Allergy/AdvReac Type Severity Reaction Status Date / Time No Known Allergies Allergy Verified 02/24/19 16:08 Certification: Further, I certify that my clinical findings support that this patient is homebound (i.e. absences from home require considerable and taxing effort and are for medical reasons or bahai services or infrequently or short duration when for other reasons) because: Homebound Reason: Patient requires assistance of a person or device to safely leave home, Leaving home requires considerable and taxing effort due to condition Attestation: My signature below is to certify that this patient is under my care and that I, or nurse practitioner, or a physician's orthopaedic physician assistant working with me, has a [id number] encounter with this patient.
== END 2019-03-06 14:38 | disposition home or self-care (01) | DRG 946 ==
LOC: INPGRE 11:44

== ENCOUNTER 2022-02-09 15:30 | Inpatient (IN) ==
[2022-02-10] MEDS ORDERED: Lidocaine 5% OINT 35 APPL/35.44 GM TUBE TP PRN (22:41)
[2022-02-10] MEDS ORDERED: polyethylene glycoL 3350 17 GM POWD.PACK PO PRN (22:41)
[2022-02-11] MEDS: *HR* OxyCODONE Immed Rel 5 MG TABLET PO PRN ×3 (00:01→19:47)
[2022-02-11] MEDS: traZODone 50 MG TABLET PO PRN ×2 (00:01→19:46)
[2022-02-11] MEDS: *HR* LORazepam 0.5 MG TABLET PO PRN ×2 (00:01→08:16)
[2022-02-11 05:49] LABS: Basophils % 1.1 %; Eosinophils # 0.1 K/mcL (0.0-0.6); Eosinophils % 3.5 %; Hematocrit 32.9 % (37.5-50.1); Hemoglobin 11.2 g/dL (12.9-16.9); Immature Granulocytes % 0.3 % (0-4); Lymphocytes # 0.8 K/mcL (0.6-4.6); Lymphocytes % 21.2 %; Mean Corpuscular Hemoglobin 31.3 pg (28.0-33.3); Mean Corpuscular Volume 91.9 fL (83.0-100.0); Mean Platelet Volume 10.6 fL (9.4-12.4); Monocytes # 0.6 K/mcL (0.0-1.3); Monocytes % 15.1 %; Neutrophils # 2.2 K/mcL (1.6-8.9); Platelet Count 190 K/mcL (140-400); Red Blood Count 3.58 M/mcL (4.19-5.50); Red Cell Distribution Width 14.5 % (11.5-14.5); Segmented Neutrophils % 58.8 %; White Blood Count 3.7 K/mcL (4.3-11.1)
[2022-02-11 06:11] LABS: BUN/Creatinine Ratio 19 (6-26); Blood Urea Nitrogen 24 mg/dL (8-23); Calcium 8.8 mg/dL (8.6-10.3); Carbon Dioxide 29 mEq/L (23-29); Chloride 104 mEq/L (98-107); Glucose 110 mg/dL (70-105); Osmolality,Calculated 297 (280-300); Sodium 141 mEq/L (136-145); eGFR For African Americans > 60 (> 60); eGFR For Non-African Americans 57 (> 60)
[2022-02-11] MEDS: valACYclovir 500 MG TABLET PO SCH ×4 (06:27→22:18)
[2022-02-11] MEDS: levETIRAcetam 250 MG TABLET PO SCH ×2 (06:32→17:27)
[2022-02-11] MEDS: *HR* Enoxaparin 40 MG/0.4 ML SYRINGE SQ SCH (06:32)
[2022-02-11] MEDS: QUEtiapine Fumarate 25 MG TABLET PO SCH (08:08)
[2022-02-11] MEDS: Lactobacillus 1 EACH CAP.SPRINK PO SCH (08:08)
[2022-02-11] MEDS: amLODIPine 5 MG TABLET PO SCH (08:09)
[2022-02-11] MEDS: Venlafaxine XR (24 HR) 75 MG CAP.ER.24H PO SCH (08:09)
[2022-02-11] MEDS: Multivit/Ca/Min/Fe/FA 1 TAB TABLET PO SCH (08:09)
[2022-02-11] MEDS: Cyanocobalamin (B-12) 1,000 MCG TABLET PO SCH (08:09)
[2022-02-11] MEDS: Aspirin Enteric Coated 81 MG Tablet PO SCH ×2 (08:09→19:46)
[2022-02-11] MEDS ORDERED: hydrOXYzine pamoate 25 MG CAPSULE PO SCH (09:00)
[2022-02-11] MEDS ORDERED: Gabapentin 300 MG CAPSULE PO SCH (09:00)
[2022-02-11] MEDS: Budesonide/Formoterol 160/4.5 1 PUFF INH IH SCH ×2 (10:08→20:53)
[2022-02-11] MEDS: Gabapentin 300 MG CAPSULE PO SCH ×2 (15:56→19:46)
[2022-02-12] MEDS: *HR* OxyCODONE Immed Rel 5 MG TABLET PO PRN ×4 (02:22→21:08)
[2022-02-12] MEDS: *HR* LORazepam 0.5 MG TABLET PO PRN (03:31)
[2022-02-12] MEDS: *HR* Enoxaparin 40 MG/0.4 ML SYRINGE SQ SCH (06:13)
[2022-02-12] MEDS: valACYclovir 500 MG TABLET PO SCH ×3 (06:15→21:06)
[2022-02-12] MEDS: levETIRAcetam 250 MG TABLET PO SCH ×2 (06:16→17:57)
[2022-02-12] MEDS: amLODIPine 5 MG TABLET PO SCH (09:02)
[2022-02-12] MEDS: Venlafaxine XR (24 HR) 75 MG CAP.ER.24H PO SCH (09:02)
[2022-02-12] MEDS: Multivit/Ca/Min/Fe/FA 1 TAB TABLET PO SCH (09:02)
[2022-02-12] MEDS: QUEtiapine Fumarate 25 MG TABLET PO SCH (09:02)
[2022-02-12] MEDS: Aspirin Enteric Coated 81 MG Tablet PO SCH ×2 (09:02→21:08)
[2022-02-12] MEDS: Lactobacillus 1 EACH CAP.SPRINK PO SCH (09:02)
[2022-02-12] MEDS: Gabapentin 300 MG CAPSULE PO SCH ×3 (09:02→21:09)
[2022-02-12] MEDS: Cyanocobalamin (B-12) 1,000 MCG TABLET PO SCH (09:04)
[2022-02-12] MEDS: Budesonide/Formoterol 160/4.5 1 PUFF INH IH SCH ×2 (10:21→20:53)
[2022-02-13] MEDS: *HR* OxyCODONE Immed Rel 5 MG TABLET PO PRN ×4 (01:49→20:13)
[2022-02-13 06:00] LABS: Hematocrit 31.3 % (37.5-50.1); Hemoglobin 10.6 g/dL (12.9-16.9); Mean Corpuscular HGB Conc 33.9 g/dL (31.6-35.5); Mean Corpuscular Hemoglobin 30.9 pg (28.0-33.3); Mean Corpuscular Volume 91.3 fL (83.0-100.0); Mean Platelet Volume 10.1 fL (9.4-12.4); Platelet Count 184 K/mcL (140-400); Red Blood Count 3.43 M/mcL (4.19-5.50); Red Cell Distribution Width 14.5 % (11.5-14.5); White Blood Count 3.5 K/mcL (4.3-11.1)
[2022-02-13] MEDS: *HR* Enoxaparin 40 MG/0.4 ML SYRINGE SQ SCH (06:03)
[2022-02-13] MEDS: levETIRAcetam 250 MG TABLET PO SCH ×2 (06:04→15:46)
[2022-02-13] MEDS: valACYclovir 500 MG TABLET PO SCH ×3 (06:05→22:14)
[2022-02-13 06:17] LABS: Alanine Aminotransferase 29 Units/L (7-52); Albumin 3.7 g/dL (3.5-5.7); Albumin/Globulin Ratio 1.4 (1.1-2.2); Alkaline Phosphatase 117 Units/L (34-104); Aspartate Amino Transferase 26 Units/L (13-39); BUN/Creatinine Ratio 17 (6-26); Bilirubin,Total 0.4 mg/dL (0.3-1.0); Blood Urea Nitrogen 22 mg/dL (8-23); Calcium 8.7 mg/dL (8.6-10.3); Carbon Dioxide 31 mEq/L (23-29); Chloride 103 mEq/L (98-107); Globulin 2.7 g/dL (2.4-3.5); Glucose 103 mg/dL (70-105); Magnesium 1.9 mg/dL (1.6-2.6); Osmolality,Calculated 292 (280-300); Potassium 4.4 mEq/L (3.5-5.1); Sodium 139 mEq/L (136-145); Total Protein 6.4 g/dL (6.4-8.9); eGFR For African Americans > 60 (> 60); eGFR For Non-African Americans 56 (> 60)
[2022-02-13] MEDS: Budesonide/Formoterol 160/4.5 1 PUFF INH IH SCH ×2 (07:24→19:13)
[2022-02-13] MEDS: Venlafaxine XR (24 HR) 75 MG CAP.ER.24H PO SCH (08:12)
[2022-02-13] MEDS: amLODIPine 5 MG TABLET PO SCH (08:12)
[2022-02-13] MEDS: Cyanocobalamin (B-12) 1,000 MCG TABLET PO SCH (08:12)
[2022-02-13] MEDS: Multivit/Ca/Min/Fe/FA 1 TAB TABLET PO SCH (08:12)
[2022-02-13] MEDS: Aspirin Enteric Coated 81 MG Tablet PO SCH ×2 (08:12→20:13)
[2022-02-13] MEDS: QUEtiapine Fumarate 25 MG TABLET PO SCH (08:12)
[2022-02-13] MEDS: Gabapentin 300 MG CAPSULE PO SCH ×3 (08:12→20:13)
[2022-02-13] MEDS: Lactobacillus 1 EACH CAP.SPRINK PO SCH (08:12)
[2022-02-13] MEDS ORDERED: DiphenhydraMINE CREAM 28.4 GM TUBE TP PRN (10:18)
[2022-02-13] MEDS: Loratadine 10 MG TABLET PO SCH (13:37)
[2022-02-13] MEDS: traZODone 50 MG TABLET PO PRN (20:13)
[2022-02-13] MEDS: *HR* LORazepam 0.5 MG TABLET PO PRN (22:14)
[2022-02-13] MEDS: Acetaminophen 325 MG TABLET PO PRN (22:15)
[2022-02-14] MEDS: *HR* Enoxaparin 40 MG/0.4 ML SYRINGE SQ SCH (06:14)
[2022-02-14] MEDS: levETIRAcetam 250 MG TABLET PO SCH ×2 (06:14→17:06)
[2022-02-14] MEDS: valACYclovir 500 MG TABLET PO SCH ×3 (06:14→21:23)
[2022-02-14] MEDS: *HR* OxyCODONE Immed Rel 5 MG TABLET PO PRN ×3 (06:15→20:55)
[2022-02-14] MEDS: Aspirin Enteric Coated 81 MG Tablet PO SCH ×2 (08:49→20:53)
[2022-02-14] MEDS: Lactobacillus 1 EACH CAP.SPRINK PO SCH (08:49)
[2022-02-14] MEDS: Multivit/Ca/Min/Fe/FA 1 TAB TABLET PO SCH (08:49)
[2022-02-14] MEDS: Loratadine 10 MG TABLET PO SCH (08:50)
[2022-02-14] MEDS: Acetaminophen 325 MG TABLET PO PRN (08:51)
[2022-02-14] MEDS: QUEtiapine Fumarate 25 MG TABLET PO SCH (08:51)
[2022-02-14] MEDS: amLODIPine 5 MG TABLET PO SCH (08:51)
[2022-02-14] MEDS: Gabapentin 300 MG CAPSULE PO SCH ×3 (08:51→20:53)
[2022-02-14] MEDS: Venlafaxine XR (24 HR) 75 MG CAP.ER.24H PO SCH (08:52)
[2022-02-14] MEDS: Cyanocobalamin (B-12) 1,000 MCG TABLET PO SCH (08:52)
[2022-02-14] MEDS: Fluticasone Propionate Nasal 50 MCG/SPRAY BOTTLE NS SCH (08:58)
[2022-02-14] MEDS: Budesonide/Formoterol 160/4.5 1 PUFF INH IH SCH ×2 (10:21→20:08)
[2022-02-14] MEDS: traZODone 50 MG TABLET PO PRN (20:53)
[2022-02-14] MEDS: *HR* LORazepam 0.5 MG TABLET PO PRN (20:56)
[2022-02-15] MEDS: *HR* OxyCODONE Immed Rel 5 MG TABLET PO PRN ×6 (01:50→21:59)
[2022-02-15] MEDS: valACYclovir 500 MG TABLET PO SCH ×3 (05:00→22:05)
[2022-02-15] MEDS: levETIRAcetam 250 MG TABLET PO SCH ×2 (06:24→16:33)
[2022-02-15] MEDS: *HR* Enoxaparin 40 MG/0.4 ML SYRINGE SQ SCH (06:24)
[2022-02-15] MEDS: Venlafaxine XR (24 HR) 75 MG CAP.ER.24H PO SCH (08:11)
[2022-02-15] MEDS: Lactobacillus 1 EACH CAP.SPRINK PO SCH (08:12)
[2022-02-15] MEDS: amLODIPine 5 MG TABLET PO SCH (08:12)
[2022-02-15] MEDS: Multivit/Ca/Min/Fe/FA 1 TAB TABLET PO SCH (08:12)
[2022-02-15] MEDS: Fluticasone Propionate Nasal 50 MCG/SPRAY BOTTLE NS SCH (08:12)
[2022-02-15] MEDS: Gabapentin 300 MG CAPSULE PO SCH ×3 (08:12→21:58)
[2022-02-15] MEDS: Aspirin Enteric Coated 81 MG Tablet PO SCH ×2 (08:12→21:58)
[2022-02-15] MEDS: QUEtiapine Fumarate 25 MG TABLET PO SCH (08:12)
[2022-02-15] MEDS: Loratadine 10 MG TABLET PO SCH (08:12)
[2022-02-15] MEDS: Cyanocobalamin (B-12) 1,000 MCG TABLET PO SCH (08:13)
[2022-02-15] MEDS: Budesonide/Formoterol 160/4.5 1 PUFF INH IH SCH ×2 (10:28→20:17)
[2022-02-15] MEDS: Doxycycline 100 MG CAPSULE PO SCH ×2 (12:53→21:58)
[2022-02-15] MEDS: traZODone 50 MG TABLET PO PRN (21:58)
[2022-02-15] MEDS: *HR* LORazepam 0.5 MG TABLET PO PRN (21:58)
[2022-02-16] MEDS: levETIRAcetam 250 MG TABLET PO SCH ×2 (06:48→17:03)
[2022-02-16] MEDS: *HR* OxyCODONE Immed Rel 5 MG TABLET PO PRN ×4 (06:49→23:30)
[2022-02-16] MEDS: valACYclovir 500 MG TABLET PO SCH ×3 (06:49→23:21)
[2022-02-16] MEDS: *HR* Enoxaparin 40 MG/0.4 ML SYRINGE SQ SCH (06:50)
[2022-02-16] MEDS: Aspirin Enteric Coated 81 MG Tablet PO SCH ×2 (09:17→23:21)
[2022-02-16] MEDS: Doxycycline 100 MG CAPSULE PO SCH ×2 (09:17→23:21)
[2022-02-16] MEDS: Multivit/Ca/Min/Fe/FA 1 TAB TABLET PO SCH (09:17)
[2022-02-16] MEDS: QUEtiapine Fumarate 25 MG TABLET PO SCH (09:17)
[2022-02-16] MEDS: amLODIPine 5 MG TABLET PO SCH (09:17)
[2022-02-16] MEDS: Venlafaxine XR (24 HR) 75 MG CAP.ER.24H PO SCH (09:18)
[2022-02-16] MEDS: Cyanocobalamin (B-12) 1,000 MCG TABLET PO SCH (09:18)
[2022-02-16] MEDS: Lactobacillus 1 EACH CAP.SPRINK PO SCH (09:18)
[2022-02-16] MEDS: Loratadine 10 MG TABLET PO SCH (09:18)
[2022-02-16] MEDS: Gabapentin 300 MG CAPSULE PO SCH ×3 (09:18→23:23)
[2022-02-16] MEDS: Budesonide/Formoterol 160/4.5 1 PUFF INH IH SCH ×2 (10:15→21:32)
[2022-02-16] MEDS: Sennosides/Docusate Sodium TABLET PO SCH ×2 (12:11→23:23)
[2022-02-16] MEDS: Fluticasone Propionate Nasal 50 MCG/SPRAY BOTTLE NS SCH (12:11)
[2022-02-16] MEDS ORDERED: Trolamine Salicylate/Aloe Vera 85 APPL/85 GM TUBE TP PRN (15:53)
[2022-02-16] MEDS: Ondansetron ODT 4 MG TAB.RAPDIS SL PRN (20:35)
[2022-02-16] MEDS ORDERED: *HR* LORazepam 2 MG/ML VIAL ONE (21:15)
[2022-02-16] MEDS ORDERED: *HR* LORazepam 2 MG/ML VIAL IVP ONE (21:26)
[2022-02-16 21:40] LABS: Basophils % 0.7 %; Eosinophils # 0.1 K/mcL (0.0-0.6); Eosinophils % 3.4 %; Hematocrit 31.7 % (37.5-50.1); Hemoglobin 10.8 g/dL (12.9-16.9); Immature Granulocytes % 0.2 % (0-4); Lymphocytes # 1.2 K/mcL (0.6-4.6); Lymphocytes % 28.1 %; Mean Corpuscular HGB Conc 34.1 g/dL (31.6-35.5); Mean Corpuscular Hemoglobin 30.9 pg (28.0-33.3); Mean Corpuscular Volume 90.6 fL (83.0-100.0); Mean Platelet Volume 10.5 fL (9.4-12.4); Monocytes # 0.4 K/mcL (0.0-1.3); Monocytes % 10.5 %; Neutrophils # 2.3 K/mcL (1.6-8.9); Platelet Count 231 K/mcL (140-400); Segmented Neutrophils % 57.1 %; White Blood Count 4.1 K/mcL (4.3-11.1)
[2022-02-16 21:57] LABS: Albumin 3.9 g/dL (3.5-5.7); Albumin/Globulin Ratio 1.4 (1.1-2.2); Bilirubin,Total 0.4 mg/dL (0.3-1.0); Calcium 9.1 mg/dL (8.6-10.3); Globulin 2.8 g/dL (2.4-3.5); Potassium 3.6 mEq/L (3.5-5.1); Total Protein 6.7 g/dL (6.4-8.9)
[2022-02-16] MEDS: traZODone 50 MG TABLET PO PRN (23:22)
[2022-02-17] MEDS: levETIRAcetam 250 MG TABLET PO SCH ×2 (06:47→16:37)
[2022-02-17] MEDS: *HR* Enoxaparin 40 MG/0.4 ML SYRINGE SQ SCH (06:47)
[2022-02-17] MEDS: valACYclovir 500 MG TABLET PO SCH ×3 (06:48→23:25)
[2022-02-17] MEDS: *HR* OxyCODONE Immed Rel 5 MG TABLET PO PRN ×3 (06:55→22:28)
[2022-02-17 09:14] LABS: Bilirubin,Urine Negative (Negative); Blood,Urine Negative (Negative); Clarity,Urine Clear (Clear); Color,Urine Yellow (Yellow); Glucose,Urine (UA) Normal (Normal); Ketones,Urine Negative (Negative); Leukocyte Esterase,Urine Negative (Negative); Nitrite,Urine Negative (Negative); Protein,Urine Negative (Neg-Trace); Urobilinogen,Urine Normal (Normal)
[2022-02-17] MEDS: Budesonide/Formoterol 160/4.5 1 PUFF INH IH SCH ×2 (09:19→22:25)
[2022-02-17 09:23] LABS: Amphetamine Screen,Urine Negative ng/mL (Cutoff=1000); Barbiturate Screen,Urine Negative ng/mL (Cutoff=200); Benzodiazepines Screen,Urine Negative ng/mL (Cutoff=200); Cannabinoid Screen,Urine Negative ng/mL (Cutoff = 50); Cocaine Screen,Urine Negative ng/mL (Cutoff= 300); Opiate Screen,Urine Negative ng/mL (Cutoff=300); Phencyclidine Screen,Urine Negative ng/mL (Cutoff=25)
[2022-02-17] MEDS: Sennosides/Docusate Sodium TABLET PO SCH ×2 (09:24→22:32)
[2022-02-17] MEDS: Venlafaxine XR (24 HR) 75 MG CAP.ER.24H PO SCH (09:24)
[2022-02-17] MEDS: Cyanocobalamin (B-12) 1,000 MCG TABLET PO SCH (09:24)
[2022-02-17] MEDS: Lactobacillus 1 EACH CAP.SPRINK PO SCH (09:24)
[2022-02-17] MEDS: QUEtiapine Fumarate 25 MG TABLET PO SCH (09:24)
[2022-02-17] MEDS: Multivit/Ca/Min/Fe/FA 1 TAB TABLET PO SCH (09:24)
[2022-02-17] MEDS: Aspirin Enteric Coated 81 MG Tablet PO SCH ×2 (09:24→22:32)
[2022-02-17] MEDS: Doxycycline 100 MG CAPSULE PO SCH ×2 (09:25→23:01)
[2022-02-17] MEDS: Loratadine 10 MG TABLET PO SCH (09:25)
[2022-02-17] MEDS: amLODIPine 5 MG TABLET PO SCH (09:25)
[2022-02-17] MEDS: Gabapentin 300 MG CAPSULE PO SCH ×3 (09:25→22:31)
[2022-02-17] MEDS: Fluticasone Propionate Nasal 50 MCG/SPRAY BOTTLE NS SCH (09:25)
[2022-02-17] MEDS ORDERED: 0.9 % Sodium Chloride 1,000 ML IVC SCH (10:00)
[2022-02-17] MEDS: Ondansetron ODT 4 MG TAB.RAPDIS SL PRN (13:08)
[2022-02-17] MEDS ORDERED: Venlafaxine XR (24 HR) 75 MG CAP.ER.24H PO ONE (16:15)
[2022-02-17] MEDS ORDERED: Milk and Molasses Enema 200 ML RC ONE (17:00)
[2022-02-17] MEDS: traZODone 50 MG TABLET PO PRN (22:28)
[2022-02-18] MEDS: levETIRAcetam 250 MG TABLET PO SCH ×2 (04:37→16:57)
[2022-02-18] MEDS: *HR* OxyCODONE Immed Rel 5 MG TABLET PO PRN ×2 (04:37→12:56)
[2022-02-18] MEDS: *HR* Enoxaparin 40 MG/0.4 ML SYRINGE SQ SCH (04:38)
[2022-02-18] MEDS: Budesonide/Formoterol 160/4.5 1 PUFF INH IH SCH ×2 (07:24→20:52)
[2022-02-18] MEDS: Lactobacillus 1 EACH CAP.SPRINK PO SCH (08:08)
[2022-02-18] MEDS: Sennosides/Docusate Sodium TABLET PO SCH ×2 (08:08→20:31)
[2022-02-18] MEDS: Multivit/Ca/Min/Fe/FA 1 TAB TABLET PO SCH (08:08)
[2022-02-18] MEDS: amLODIPine 5 MG TABLET PO SCH (08:08)
[2022-02-18] MEDS: valACYclovir 500 MG TABLET PO SCH ×3 (08:08→21:49)
[2022-02-18] MEDS: Venlafaxine XR (24 HR) 75 MG CAP.ER.24H PO SCH (08:08)
[2022-02-18] MEDS: Doxycycline 100 MG CAPSULE PO SCH ×2 (08:08→20:31)
[2022-02-18] MEDS: Loratadine 10 MG TABLET PO SCH (08:08)
[2022-02-18] MEDS: Aspirin Enteric Coated 81 MG Tablet PO SCH ×2 (08:08→20:31)
[2022-02-18] MEDS: QUEtiapine Fumarate 25 MG TABLET PO SCH (08:08)
[2022-02-18] MEDS: Gabapentin 300 MG CAPSULE PO SCH ×3 (08:08→20:31)
[2022-02-18] MEDS: Cyanocobalamin (B-12) 1,000 MCG TABLET PO SCH (08:08)
[2022-02-18] MEDS: Fluticasone Propionate Nasal 50 MCG/SPRAY BOTTLE NS SCH (08:12)
[2022-02-18] MEDS ORDERED: *HR* LORazepam 2 MG/ML VIAL IVP PRN (17:40)
[2022-02-19] MEDS: valACYclovir 500 MG TABLET PO SCH ×3 (05:42→20:41)
[2022-02-19] MEDS: *HR* Enoxaparin 40 MG/0.4 ML SYRINGE SQ SCH (05:42)
[2022-02-19] MEDS: levETIRAcetam 250 MG TABLET PO SCH ×2 (05:42→17:05)
[2022-02-19] MEDS: Budesonide/Formoterol 160/4.5 1 PUFF INH IH SCH ×2 (07:43→19:45)
[2022-02-19] MEDS: amLODIPine 5 MG TABLET PO SCH (08:00)
[2022-02-19] MEDS: Doxycycline 100 MG CAPSULE PO SCH (08:01)
[2022-02-19] MEDS: Multivit/Ca/Min/Fe/FA 1 TAB TABLET PO SCH (08:01)
[2022-02-19] MEDS: *HR* OxyCODONE Immed Rel 5 MG TABLET PO PRN ×3 (08:01→17:05)
[2022-02-19] MEDS: QUEtiapine Fumarate 25 MG TABLET PO SCH (08:01)
[2022-02-19] MEDS: Aspirin Enteric Coated 81 MG Tablet PO SCH ×2 (08:01→20:33)
[2022-02-19] MEDS: Venlafaxine XR (24 HR) 75 MG CAP.ER.24H PO SCH (08:01)
[2022-02-19] MEDS: Cyanocobalamin (B-12) 1,000 MCG TABLET PO SCH (08:01)
[2022-02-19] MEDS: Sennosides/Docusate Sodium TABLET PO SCH ×2 (08:02→20:33)
[2022-02-19] MEDS: Loratadine 10 MG TABLET PO SCH (08:02)
[2022-02-19] MEDS: Gabapentin 300 MG CAPSULE PO SCH ×3 (08:02→20:33)
[2022-02-19] MEDS: Lactobacillus 1 EACH CAP.SPRINK PO SCH (08:02)
[2022-02-19] MEDS: Fluticasone Propionate Nasal 50 MCG/SPRAY BOTTLE NS SCH (08:05)
[2022-02-19] MEDS: *HR* LORazepam 0.5 MG TABLET PO PRN (20:33)
[2022-02-19] MEDS: traZODone 50 MG TABLET PO PRN (20:33)
[2022-02-20] MEDS: levETIRAcetam 250 MG TABLET PO SCH ×2 (06:20→16:28)
[2022-02-20] MEDS: valACYclovir 500 MG TABLET PO SCH ×3 (06:20→21:20)
[2022-02-20] MEDS: *HR* Enoxaparin 40 MG/0.4 ML SYRINGE SQ SCH (06:20)
[2022-02-20] MEDS: Lactobacillus 1 EACH CAP.SPRINK PO SCH (08:42)
[2022-02-20] MEDS: Aspirin Enteric Coated 81 MG Tablet PO SCH ×2 (08:42→21:11)
[2022-02-20] MEDS: Sennosides/Docusate Sodium TABLET PO SCH ×2 (08:42→21:17)
[2022-02-20] MEDS: Cyanocobalamin (B-12) 1,000 MCG TABLET PO SCH (08:42)
[2022-02-20] MEDS: QUEtiapine Fumarate 25 MG TABLET PO SCH (08:42)
[2022-02-20] MEDS: Loratadine 10 MG TABLET PO SCH (08:42)
[2022-02-20] MEDS: Venlafaxine XR (24 HR) 75 MG CAP.ER.24H PO SCH (08:42)
[2022-02-20] MEDS: amLODIPine 5 MG TABLET PO SCH (08:43)
[2022-02-20] MEDS: Multivit/Ca/Min/Fe/FA 1 TAB TABLET PO SCH (08:43)
[2022-02-20] MEDS: Gabapentin 300 MG CAPSULE PO SCH ×3 (08:43→21:11)
[2022-02-20] MEDS: *HR* OxyCODONE Immed Rel 5 MG TABLET PO PRN ×3 (08:43→18:22)
[2022-02-20] MEDS: Fluticasone Propionate Nasal 50 MCG/SPRAY BOTTLE NS SCH (08:50)
[2022-02-20] MEDS: Budesonide/Formoterol 160/4.5 1 PUFF INH IH SCH ×2 (10:30→19:41)
[2022-02-20] MEDS: traZODone 50 MG TABLET PO PRN (21:23)
[2022-02-20] MEDS ORDERED: *HR* LORazepam 2 MG/ML VIAL IVP ONE (21:30)
[2022-02-21] MEDS: levETIRAcetam 250 MG TABLET PO SCH ×2 (06:13→16:51)
[2022-02-21] MEDS: *HR* Enoxaparin 40 MG/0.4 ML SYRINGE SQ SCH (06:13)
[2022-02-21] MEDS: valACYclovir 500 MG TABLET PO SCH ×3 (06:13→21:24)
[2022-02-21] MEDS: Budesonide/Formoterol 160/4.5 1 PUFF INH IH SCH ×2 (07:19→21:53)
[2022-02-21] MEDS: Fluticasone Propionate Nasal 50 MCG/SPRAY BOTTLE NS SCH (08:18)
[2022-02-21] MEDS: Aspirin Enteric Coated 81 MG Tablet PO SCH ×2 (08:19→19:55)
[2022-02-21] MEDS: QUEtiapine Fumarate 25 MG TABLET PO SCH (08:19)
[2022-02-21] MEDS: Multivit/Ca/Min/Fe/FA 1 TAB TABLET PO SCH (08:19)
[2022-02-21] MEDS: Lactobacillus 1 EACH CAP.SPRINK PO SCH (08:19)
[2022-02-21] MEDS: Gabapentin 300 MG CAPSULE PO SCH ×3 (08:19→19:57)
[2022-02-21] MEDS: *HR* OxyCODONE Immed Rel 5 MG TABLET PO PRN ×3 (08:19→21:23)
[2022-02-21] MEDS: Sennosides/Docusate Sodium TABLET PO SCH ×2 (08:20→19:56)
[2022-02-21] MEDS: Venlafaxine XR (24 HR) 75 MG CAP.ER.24H PO SCH (08:20)
[2022-02-21] MEDS: amLODIPine 5 MG TABLET PO SCH (08:20)
[2022-02-21] MEDS: Loratadine 10 MG TABLET PO SCH (08:20)
[2022-02-21] MEDS: Cyanocobalamin (B-12) 1,000 MCG TABLET PO SCH (08:20)
[2022-02-21] MEDS: *HR* LORazepam 0.5 MG TABLET PO PRN (11:37)
[2022-02-21] MEDS: Ondansetron ODT 4 MG TAB.RAPDIS SL PRN (19:57)
[2022-02-22] MEDS: *HR* LORazepam 0.5 MG TABLET PO PRN (01:29)
[2022-02-22] MEDS: *HR* OxyCODONE Immed Rel 5 MG TABLET PO PRN ×4 (01:29→19:57)
[2022-02-22] MEDS: valACYclovir 500 MG TABLET PO SCH ×3 (05:31→19:54)
[2022-02-22] MEDS: levETIRAcetam 250 MG TABLET PO SCH ×2 (05:32→16:05)
[2022-02-22] MEDS: *HR* Enoxaparin 40 MG/0.4 ML SYRINGE SQ SCH (05:33)
[2022-02-22] MEDS: Budesonide/Formoterol 160/4.5 1 PUFF INH IH SCH ×2 (07:32→21:25)
[2022-02-22] MEDS: Gabapentin 300 MG CAPSULE PO SCH ×3 (08:34→19:57)
[2022-02-22] MEDS: Loratadine 10 MG TABLET PO SCH (08:34)
[2022-02-22] MEDS: Lactobacillus 1 EACH CAP.SPRINK PO SCH (08:34)
[2022-02-22] MEDS: Ondansetron ODT 4 MG TAB.RAPDIS SL PRN (08:34)
[2022-02-22] MEDS: Cyanocobalamin (B-12) 1,000 MCG TABLET PO SCH (08:35)
[2022-02-22] MEDS: Multivit/Ca/Min/Fe/FA 1 TAB TABLET PO SCH (08:35)
[2022-02-22] MEDS: Aspirin Enteric Coated 81 MG Tablet PO SCH ×2 (08:35→19:56)
[2022-02-22] MEDS: QUEtiapine Fumarate 25 MG TABLET PO SCH (08:35)
[2022-02-22] MEDS: Venlafaxine XR (24 HR) 75 MG CAP.ER.24H PO SCH (08:35)
[2022-02-22] MEDS: amLODIPine 5 MG TABLET PO SCH (08:35)
[2022-02-22] MEDS: Sennosides/Docusate Sodium TABLET PO SCH ×2 (08:35→19:55)
[2022-02-22] MEDS: Fluticasone Propionate Nasal 50 MCG/SPRAY BOTTLE NS SCH (08:36)
[2022-02-22] MEDS: traZODone 50 MG TABLET PO PRN (19:56)
[2022-02-23 05:01] LABS: Basophils % 0.9 %; Eosinophils # 0.2 K/mcL (0.0-0.6); Eosinophils % 5.2 %; Hematocrit 32.1 % (37.5-50.1); Hemoglobin 10.6 g/dL (12.9-16.9); Immature Granulocytes % 0.3 % (0-4); Lymphocytes # 0.9 K/mcL (0.6-4.6); Mean Corpuscular Hemoglobin 31.1 pg (28.0-33.3); Mean Corpuscular Volume 94.1 fL (83.0-100.0); Mean Platelet Volume 10.7 fL (9.4-12.4); Monocytes # 0.5 K/mcL (0.0-1.3); Monocytes % 14.4 %; Platelet Count 210 K/mcL (140-400); Red Blood Count 3.41 M/mcL (4.19-5.50); Red Cell Distribution Width 15.2 % (11.5-14.5); Segmented Neutrophils % 53.2 %; White Blood Count 3.3 K/mcL (4.3-11.1)
[2022-02-23 05:02] LABS: Neutrophils # 1.8 K/mcL (1.6-8.9)
[2022-02-23 05:13] LABS: BUN/Creatinine Ratio 9 (6-26); Blood Urea Nitrogen 12 mg/dL (8-23); Calcium 8.9 mg/dL (8.6-10.3); Carbon Dioxide 30 mEq/L (23-29); Chloride 105 mEq/L (98-107); Glucose 113 mg/dL (70-105); Osmolality,Calculated 295 (280-300); Potassium 3.7 mEq/L (3.5-5.1); Sodium 142 mEq/L (136-145); eGFR For African Americans > 60 (> 60); eGFR For Non-African Americans 55 (> 60)
[2022-02-23] MEDS: levETIRAcetam 250 MG TABLET PO SCH ×2 (05:29→16:27)
[2022-02-23] MEDS: *HR* OxyCODONE Immed Rel 5 MG TABLET PO PRN ×3 (05:29→19:56)
[2022-02-23] MEDS: valACYclovir 500 MG TABLET PO SCH ×3 (05:30→19:57)
[2022-02-23] MEDS: *HR* Enoxaparin 40 MG/0.4 ML SYRINGE SQ SCH (05:31)
[2022-02-23] MEDS: Budesonide/Formoterol 160/4.5 1 PUFF INH IH SCH ×2 (07:31→22:47)
[2022-02-23] MEDS: Fluticasone Propionate Nasal 50 MCG/SPRAY BOTTLE NS SCH (08:11)
[2022-02-23] MEDS: Gabapentin 300 MG CAPSULE PO SCH ×3 (08:11→19:57)
[2022-02-23] MEDS: Multivit/Ca/Min/Fe/FA 1 TAB TABLET PO SCH (08:12)
[2022-02-23] MEDS: amLODIPine 5 MG TABLET PO SCH (08:12)
[2022-02-23] MEDS: Loratadine 10 MG TABLET PO SCH (08:12)
[2022-02-23] MEDS: Sennosides/Docusate Sodium TABLET PO SCH ×2 (08:12→19:55)
[2022-02-23] MEDS: Venlafaxine XR (24 HR) 75 MG CAP.ER.24H PO SCH (08:12)
[2022-02-23] MEDS: QUEtiapine Fumarate 25 MG TABLET PO SCH (08:12)
[2022-02-23] MEDS: Aspirin Enteric Coated 81 MG Tablet PO SCH ×2 (08:12→19:55)
[2022-02-23] MEDS: Lactobacillus 1 EACH CAP.SPRINK PO SCH (08:12)
[2022-02-23] MEDS: Cyanocobalamin (B-12) 1,000 MCG TABLET PO SCH (08:13)
[2022-02-23] MEDS: traZODone 50 MG TABLET PO PRN (19:56)
[2022-02-24] MEDS: levETIRAcetam 250 MG TABLET PO SCH (05:50)
[2022-02-24] MEDS: *HR* OxyCODONE Immed Rel 5 MG TABLET PO PRN (05:50)
[2022-02-24] MEDS: valACYclovir 500 MG TABLET PO SCH (05:51)
[2022-02-24] MEDS: *HR* Enoxaparin 40 MG/0.4 ML SYRINGE SQ SCH (05:52)
[2022-02-24 07:05] VITALS: BP 126/69; PULSE 77; TEMP 97.6; O2SAT 98
[2022-02-24] MEDS: Aspirin Enteric Coated 81 MG Tablet PO SCH (08:02)
[2022-02-24] MEDS: Venlafaxine XR (24 HR) 75 MG CAP.ER.24H PO SCH (08:02)
[2022-02-24] MEDS: QUEtiapine Fumarate 25 MG TABLET PO SCH (08:02)
[2022-02-24] MEDS: Multivit/Ca/Min/Fe/FA 1 TAB TABLET PO SCH (08:02)
[2022-02-24] MEDS: Cyanocobalamin (B-12) 1,000 MCG TABLET PO SCH (08:02)
[2022-02-24] MEDS: Lactobacillus 1 EACH CAP.SPRINK PO SCH (08:02)
[2022-02-24] MEDS: Gabapentin 300 MG CAPSULE PO SCH (08:03)
[2022-02-24] MEDS: Loratadine 10 MG TABLET PO SCH (08:03)
[2022-02-24] MEDS: Sennosides/Docusate Sodium TABLET PO SCH (08:03)
[2022-02-24] MEDS: amLODIPine 5 MG TABLET PO SCH (08:03)
[2022-02-24] MEDS: Fluticasone Propionate Nasal 50 MCG/SPRAY BOTTLE NS SCH (08:03)
[2022-02-24] MEDS: Budesonide/Formoterol 160/4.5 1 PUFF INH IH SCH (08:47)
[2022-02-24 08:55] VITALS: RESP 16
== END 2022-02-24 14:15 | disposition home health service (06) | DRG 885 ==
LOC: INPGRE 02-10 21:30
PROVIDERS: ADMIT Family Medicine; ATTEND Family Medicine